=== PATIENT | male | born 1975 | race Two or more races ===

== ENCOUNTER 2018-04-27 11:08 | Inpatient (IN) | payer OTHER ==
[~2018-04-27] VITALS: Ht 180.3 cm; Wt 109.8 kg
[2018-04-28] MEDS ORDERED: COLACE100 MG PO (14:27)
[2018-04-28] MEDS ORDERED: PERCOCET 5-3251 EACH PO (14:27)
== END 2018-04-28 19:52 | disposition home or self-care (01) | DRG 348 ==
LOC: ER 11:08 → SURG 13:03 → SEC-K 13:03 → SURG 15:15
PROC: 06BY0ZC Excision of Hemorrhoidal Plexus, Open Approach (ICD-10-PCS; principal; 2018-04-27)
PROC: 3E0T3BZ Introduction of Anesthetic Agent into Peripheral Nerves and Plexi, Percutaneous Approach (ICD-10-PCS; 2018-04-27)
DX: K64.5 Perianal venous thrombosis (principal); K62.5 Hemorrhage of anus and rectum; K62.89 Other specified diseases of anus and rectum; K64.8 Other hemorrhoids